=== PATIENT | female | born 1965 | race African-American/Black ===

== ENCOUNTER 2021-10-20 17:04 | Emergency (ER) | payer OTHER ==
[~2021-10-20] VITALS: Ht 170.2 cm; Wt 100.0 kg
[2021-10-20 17:45] LABS: BASOPHILS % 0.4 % (0.0-2.0); EOSINOPHILS % 1.3 % (0.0-5.0); HEMATOCRIT. 37.5 % (36.0-48.0); HEMOGLOBIN. 12.8 g/dL (12.0-16.0); LYMPHOCYTES % 52.9 % (20.0-50.0); MEAN CORPUSCULAR HEMOGLOBIN 30.6 pg (28.0-32.0); MEAN CORPUSCULAR VOLUME 89.4 fL (81.0-99.0); MEAN PLATELET VOLUME 8.2 fl (7.4-10.4); MONOCYTES % 7.7 % (2.0-8.0); NEUTROPHILS % 37.7 % (40.0-76.0); PLATELET 289 x1000/uL (130-400); RED CELL DISTRIBUTION WIDTH 14.3 % (11.6-14.6)
[2021-10-20 17:53] LABS: CHLORIDE 105 mEq/L (98-107)
[2021-10-20] MEDS ORDERED: SODIUM CHLORIDE 0.9% 1,000 ML IV ONE (18:00)
[2021-10-20] MEDS ORDERED: ASPIRIN 81MG TABLET PO ONE (18:45)
[2021-10-20] MEDS ORDERED: ATORVASTATIN CALCIUM 40MG TABLET PO SCH (20:00)
[2021-10-20] MEDS ORDERED: IOHEXOL-350 100 ML BOTTLE ONE (21:20)
[2021-10-20 21:36] LABS: CLARITY URINE CLEAR (CLEAR); COLOR URINE YELLOW (YELLOW); KETONES URINE NEGATIVE (NEGATIVE); LEUKOCYTE ESTERASE URINE NEGATIVE (NEGATIVE); NITRITE URINE NEGATIVE (NEGATIVE); OCCULT BLOOD URINE NEGATIVE (NEGATIVE); PH URINE 5.5 (4.5-8.0); PROTEIN URINE NEGATIVE (NEGATIVE); SPECIFIC GRAVITY URINE 1.038 (1.005-1.030); UROBILINOGEN URINE 0.2 E.U./dL (0.2-1.0)
[2021-10-20 21:54] LABS: *AMPHETAMINES SCREEN URINE NEGATIVE (NEGATIVE); *BARBITURATES SCREEN URINE NEGATIVE (NEGATIVE); *BENZODIAZEPINES SCREEN URINE NEGATIVE (NEGATIVE); *COCAINE SCREEN URINE NEGATIVE (NEGATIVE); CANNABINOID URINE SCREEN PRESUMTIVE POSITIVE (NEGATIVE); METHADONE URINE SCREEN NEGATIVE (NEGATIVE); OPIATES URINE SCREEN NEGATIVE (NEGATIVE); PHENCYCLIDINE URINE SCREEN NEGATIVE (NEGATIVE)
[2021-10-21 02:00] VITALS: BP 131/89
== END 2021-10-21 01:15 | disposition short-term general hospital (02) ==
LOC: ER 17:04 → CANBEDREQ 10-21 07:45
DX: I63.9 Cerebral infarction, unspecified (principal); G83.14 Monoplegia of lower limb affecting left nondominant side; R47.01 Aphasia; I48.91 Unspecified atrial fibrillation; R73.9 Hyperglycemia, unspecified; E87.6 Hypokalemia; R00.0 Tachycardia, unspecified; Z20.822 Contact with and (suspected) exposure to COVID-19; I11.0 Hypertensive heart disease with heart failure; I50.9 Heart failure, unspecified; R20.0 Anesthesia of skin; I87.8 Other specified disorders of veins; Z79.01 Long term (current) use of anticoagulants; Z88.2 Allergy status to sulfonamides
CPT/HCPCS: 36415; 70450; 70496; 70498; 71045; 80053; 80305; 80320; 81003; 82962; 83690; 83880; 84484; 85025; 87426; 93005; 96360; 96361; 99291; J7030; Q9967; G0480

== ENCOUNTER 2022-04-19 00:40 | Inpatient (IN) | payer OTHER ==
[~2022-04-19] VITALS: Ht 157.5 cm; Wt 120.2 kg
[2022-04-19] MEDS ORDERED: SODIUM CHLORIDE 0.9% 1,000 ML IV ONE ×2 (01:15→06:30)
[2022-04-19 03:18] LABS: BASOPHILS % 0.4 % (0.0-2.0); EOSINOPHILS % 0.7 % (0.0-5.0); HEMATOCRIT. 40.3 % (36.0-48.0); HEMOGLOBIN. 13.1 g/dL (12.0-16.0); LYMPHOCYTES % 25.2 % (20.0-50.0); MEAN CORPUSCULAR HEMOGLOBIN 29.3 pg (28.0-32.0); MEAN PLATELET VOLUME 7.8 fl (7.4-10.4); MONOCYTES % 6.6 % (2.0-8.0); NEUTROPHILS % 67.1 % (40.0-76.0); PLATELET 259 x1000/uL (130-400); RED BLOOD CELL COUNT 4.47 mill/uL (4.2-5.4)
[2022-04-19 03:24] LABS: CHLORIDE 103 mEq/L (98-107)
[2022-04-19 03:27] LABS: D-DIMER < 0.19 mg/L FEU (<0.50); INR 1.3; PARTIAL THROMBOPLASTIN TIME 47.8 sec (23.4-31.0)
[2022-04-19] MEDS ORDERED: IOHEXOL-350 100 ML BOTTLE ONE (03:29)
[2022-04-19 03:40] LABS: ETHANOL BLOOD < 10 mg/dL
[2022-04-19] MEDS ORDERED: MAGNESIUM/ALUMINUM HYDROXIDE/SIMETHICONE 30ML UDC PO PRN (06:00)
[2022-04-19] MEDS ORDERED: ACETAMINOPHEN 325MG TABLET PO PRN (06:00)
[2022-04-19] MEDS ORDERED: DOCUSATE SODIUM 100MG CAPSULE PO PRN (06:00)
[2022-04-19] MEDS ORDERED: CLONIDINE 0.1MG TABLET PO PRN (06:00)
[2022-04-19] MEDS ORDERED: ONDANSETRON HCL 4MG/2ML INJ IV PRN (06:00)
[2022-04-19] MEDS ORDERED: GUAIFENESIN 200MG/10ML SUGAR FREE UDC PO PRN (06:00)
[2022-04-19] MEDS ORDERED: DIPHENHYDRAMINE 50MG/ML VIAL IV PRN (06:00)
[2022-04-19] MEDS ORDERED: ACETAMINOPHEN 650MG SUPP PR PRN (06:00)
[2022-04-19] MEDS ORDERED: IPRATROPIUM/ALBUTEROL 0.5-3(2.5)MG/3ML NEB NEB PRN (06:00)
[2022-04-19 09:18] LABS: CHLORIDE 103 mEq/L (98-107)
[2022-04-19 09:25] LABS: HDL CHOLESTEROL 35 mg/dL (40-59); LDL CHOLESTEROL 64 mg/dL (5-100)
[2022-04-19] MEDS: PANTOPRAZOLE SODIUM 40 MG/VIAL IV SCH (09:30)
[2022-04-19 11:43] VITALS: BP 150/96
[2022-04-19] MEDS ORDERED: ALBU6.7H3 INH (11:43)
[2022-04-19] MEDS ORDERED: DILT30TA38 MT (11:43)
[2022-04-19] MEDS ORDERED: METF-414 PO (11:43)
[2022-04-19] MEDS ORDERED: DABI75CA3 MT (11:43)
[2022-04-19] MEDS ORDERED: HYDR25TA MT (11:43)
[2022-04-19 12:02] VITALS: BP 150/96
[2022-04-19] MEDS: ENOXAPARIN 120MG/0.8ML SYR SUBCUT SCH ×2 (15:13→22:09)
[2022-04-19] MEDS ORDERED: MONT10TA21 PO (15:39)
[2022-04-19] MEDS ORDERED: METF-414 MT (15:39)
[2022-04-19] MEDS ORDERED: ESCI20TA PO (15:39)
[2022-04-19] MEDS ORDERED: TOPA25 PO (15:39)
[2022-04-19] MEDS ORDERED: DILT30TA38 PO (15:39)
[2022-04-19] MEDS ORDERED: TOPI50TA MT (15:39)
[2022-04-19] MEDS ORDERED: DABI150C MT (15:43)
[2022-04-19] MEDS ORDERED: BUDE0.5A3 NEB (15:43)
[2022-04-19] MEDS ORDERED: BENZ100C86 PO (15:43)
[2022-04-19] MEDS ORDERED: POTASSIUM CHLORIDE INJ 30 MEQ in DEXT 5%/0.9% NACL 1,000 ML IV SCH (16:15)
[2022-04-19 16:21] VITALS: BP 120/66
[2022-04-19 17:02] LABS: CREATINE KINASE MB FRACTION 1.4 ng/mL (0.5-3.6)
[2022-04-19] MEDS: DEXT 5%/0.45% NACL 1000ML 1,000 ML IV SCH (17:05)
[2022-04-19 20:00] VITALS: BP 135/79
[2022-04-19] MEDS: METOPROLOL TARTRATE 25MG TABLET PO SCH (21:00)
[2022-04-19 23:34] LABS: CREATINE KINASE MB FRACTION 1.2 ng/mL (0.5-3.6)
[2022-04-20] VITALS (7 sets, daily range): BP systolic 127–133; BP diastolic 75–91
[2022-04-20 05:31] LABS: CREATINE KINASE MB FRACTION 1.1 ng/mL (0.5-3.6); T4 FREE 1.04 ng/dL (0.76-1.46)
[2022-04-20] MEDS: DEXT 5%/0.45% NACL 1000ML 1,000 ML IV SCH (06:25)
[2022-04-20] MEDS ORDERED: KETOROLAC 30MG/ML VIAL IV PRN ×2 (07:45→10:00)
[2022-04-20] MEDS: PANTOPRAZOLE SODIUM 40 MG/VIAL IV SCH (08:37)
[2022-04-20] MEDS: ENOXAPARIN 120MG/0.8ML SYR SUBCUT SCH (08:37)
[2022-04-20] MEDS: METOPROLOL TARTRATE 25MG TABLET PO SCH (08:46)
[2022-04-20] MEDS ORDERED: FUROSEMIDE 40MG/4ML VIAL IVP SCH (09:00)
[2022-04-20] MEDS ORDERED: FAMOTIDINE 20MG/2ML VIAL IV SCH (21:00)
== END 2022-04-20 17:40 | disposition short-term general hospital (02) | DRG 101 ==
LOC: ER 00:40 → 6WST 03:39
PROVIDERS: ADMIT Internal Medicine; ATTEND Internal Medicine
DX: R56.9 Unspecified convulsions (principal); I31.39 Other pericardial effusion (noninflammatory); I69.354 Hemiplegia and hemiparesis following cerebral infarction affecting left non-dominant side; Z68.42 Body mass index [BMI] 45.0-49.9, adult; R47.01 Aphasia; E86.0 Dehydration; F41.9 Anxiety disorder, unspecified; G51.0 Bell's palsy; I48.91 Unspecified atrial fibrillation; J45.909 Unspecified asthma, uncomplicated; E07.9 Disorder of thyroid, unspecified; E66.01 Morbid (severe) obesity due to excess calories; E11.9 Type 2 diabetes mellitus without complications; Z20.822 Contact with and (suspected) exposure to COVID-19; R09.89 Other specified symptoms and signs involving the circulatory and respiratory systems; Z88.2 Allergy status to sulfonamides
CPT/HCPCS: 36415; 70496; 70498; 70551; 71045; 71275; 80048; 80053; 80061; 80320; 82550; 82553; 83036; 83880; 84439; 84443; 84484; 85025; 85379; 87426; 92610; 93005; 93306; 93970; 99291; C9113; J1650; J1885; J1940; J7030; Q9967; G0480

== ENCOUNTER 2024-09-22 09:12 | Emergency (ER) | payer OTHER ==
[~2024-09-22] VITALS: Ht 167.6 cm; Wt 105.0 kg
[~2024-09-22 09:12] MED LIST: ALBU6.7H3 INH; BENZ100C86 PO; BUDE0.5A3 NEB; DABI150C MT; DILT30TA37 MT; DILT30TA37 PO; ESCI20TA PO; HYDR25TA MT; METF-414 MT; MONT-46 PO; TOPA25 PO; TOPI50TA MT
[2024-09-22 09:14] VITALS: O2SAT 97
[2024-09-22] MEDS: DILTIAZEM HCL 5MG/ML 5ML VIAL IV ONE (09:40)
[2024-09-22 10:00] LABS: BASOPHILS % 0.5 % (0.0-2.0); EOSINOPHILS % 0.7 % (0.0-5.0); HEMOGLOBIN. 12.6 g/dL (12.0-16.0); LYMPHOCYTES % 17.7 % (20.0-50.0); MEAN CORPUSCULAR HEMOGLOBIN 29.1 pg (28.0-32.0); MEAN CORPUSCULAR HGB CONC 31.5 g/dL (31.0-37.0); MEAN CORPUSCULAR VOLUME 92.2 fL (81.0-99.0); MEAN PLATELET VOLUME 7.9 fl (7.4-10.4); MONOCYTES % 5.2 % (2.0-8.0); NEUTROPHILS % 75.9 % (40.0-76.0); PLATELET 282 x1000/uL (130-400); RED BLOOD CELL COUNT 4.33 mill/uL (4.2-5.4); WHITE BLOOD COUNT 6.8 x1000/uL (4.5-11.0)
[2024-09-22] MEDS: NITROGLYCERIN 0.4MG TABLET SL SL ONE (10:00)
[2024-09-22 10:12] LABS: INR 1.3; PARTIAL THROMBOPLASTIN TIME 28.7 sec (23.4-31.0); PROTHROMBIN TIME 13.3 sec (9.6-11.0)
[2024-09-22 10:50] LABS: CHLORIDE 106 mEq/L (98-107); POTASSIUM 3.4 mEq/L (3.5-5.1); SODIUM 142 mEq/L (136-145)
[2024-09-22 10:53] LABS: CALCIUM 9.5 mg/dL (8.7-10.4); CARBON DIOXIDE 23 mEq/L (21-32)
[2024-09-22 10:56] LABS: TROPONIN I HIGH SENSITIVITY 16 ng/L (3.0-34)
[2024-09-22 10:58] LABS: CREATININE 1.2 mg/dL (0.6-1.0); GLUCOSE 175 mg/dL (70-105)
[2024-09-22 10:59] LABS: ALANINE AMINOTRANSFERASE 45 IU/L (10-49); ASPARTATE AMINOTRANSFERASE 42 IU/L (<34); UREA NITROGEN BLOOD 21 mg/dL (9-23)
[2024-09-22 11:00] LABS: BILIRUBIN DIRECT 0.2 mg/dL (<=3.0)
[2024-09-22 11:01] LABS: BILIRUBIN TOTAL 0.5 mg/dL (0.1-1.0)
[2024-09-22] MEDS: IOHEXOL-350 100 ML BOTTLE ONE (12:03)
[2024-09-22 14:03] VITALS: BP 140/98; PULSE 65; RESP 22; TEMP 36.8; O2SAT 93
== END 2024-09-22 14:23 | disposition short-term general hospital (02) ==
LOC: ER 09:12
DX: I48.91 Unspecified atrial fibrillation (principal); I11.0 Hypertensive heart disease with heart failure; I50.9 Heart failure, unspecified; E89.0 Postprocedural hypothyroidism; J45.909 Unspecified asthma, uncomplicated; Z86.73 Personal history of transient ischemic attack (TIA), and cerebral infarction without residual deficits; Z79.899 Other long term (current) drug therapy; Z79.84 Long term (current) use of oral hypoglycemic drugs; Z88.2 Allergy status to sulfonamides
CPT/HCPCS: 80076; 80048; 83880; 83735; 85025; 85610; 85730; 86850; 86900; 86901; 84484; 36415; 71045; 71275; 93005; 96374; 99291; Q9967; J3490; Z7610 ×5; A4606